=== PATIENT | male | born 1930 | race Asian ===

== ENCOUNTER 2016-12-10 03:36 | Outpatient (CLI) | payer MEDICARE, OTHER | END 2016-12-10 03:37 | disposition critical access hospital (66) | LOC: EMS 03:36 | PROVIDERS: ATTEND Surgery | DX: Z03.89 Encounter for observation for other suspected diseases and conditions ruled out (principal); W19.XXXA Unspecified fall, initial encounter; Y92.000 Kitchen of unspecified non-institutional (private) residence as the place of occurrence of the external cause | CPT/HCPCS: A0425; A0429 ==

== ENCOUNTER 2016-12-10 03:58 | Emergency (ER) | payer MEDICARE, OTHER ==
--- NOTE | 2016-12-10 04:13 | ED Physician Documentation ---
PD HPI Fall - Stated complaint Stated Complaint: GLF - Chief complaint Chief Complaint: General - History obtained from History obtained from: Patient, EMS - History of Present Illness Mechanism of injury: Unknown Fall distance: Standing position Where injury occurred: Home Timing - onset: How many hours ago (30) Contributing factors: Anticoagulated Similar symptoms before: Has not had sx before Recently seen: Not recently seen - Additional information Additional information: Patient is an 86 year old male with a history of a fib who was brought to the emergency department after falling. According to ems patient has dementia and wanders around most nights. His came to check on him and found him on the ground. she called ems. When ems arrived the patient denied any complaints. they lifted the patient to the chair, and then the patient was able to ambulate on his own. Upon initial evaluation in the emergency department patient showed no signs of trauma, and was in no distress. Review of Systems Unable to obtain: Dementia PD PAST MEDICAL HISTORY - Past Medical History Past Medical History: Yes Cardiovascular: Hypertension GI: GERD Musculoskeletal: Gout - Present Medications Home Medications: Ambulatory Orders Medication Instructions Recorded Confirmed Benzonatate 1 cap PO 12/10/16 Colchicine 12/10/16 Doxazosin [Cardura] 12/10/16 Finasteride [Proscar] 12/10/16 Omeprazole [PriLOSEC] 1 cap PO DAILY 12/10/16 12/10/16 Rivaroxaban [Xarelto] 10 mg PO DAILY 12/10/16 12/10/16 - Allergies Allergies/Adverse Reactions: Allergies Allergy/AdvReac Type Severity Reaction Status Date / Time No Known Drug Allergies Allergy Verified 12/10/16 04:04 - Social History Does the pt smoke?: No Smoking Status: Never smoker Does the pt drink ETOH?: No Does the pt have substance abuse?: No - POLST Patient has POLST: No PD ED PE NORMAL - Vitals Vital signs reviewed: Yes - General General: No acute distress, Well developed/nourished - HEENT HEENT: Atraumatic, PERRL, Pharynx benign - Neck Neck: No bony TTP - Cardiac Cardiac: No murmur, No rub - Respiratory Respiratory: No respiratory distress, Clear bilaterally - Abdomen Abdomen: Soft, Non tender, Non distended - Derm Derm: Normal color, Warm and dry, No rash, Other (no ecchymosis, no lacerations) - Extremities Extremities: No deformity, No tenderness to palpate, No edema - Neuro Neuro: No motor deficit, No sensory deficit, Normal speech Results - Vitals Vitals: Vital Signs - 24 hr 12/10/16 12/10/16 12/10/16 04:00 04:25 04:35 Temperature 36.8 C Heart Rate 64 145 H 57 L Respiratory 18 23 18 Rate Blood Pressure 152/81 H 129/69 131/64 H O2 Saturation 99 97 97 12/10/16 06:04 Temperature Heart Rate 61 Respiratory 20 Rate Blood Pressure 138/71 H O2 Saturation 97 Oxygen O2 Source Room air - EKG (time done) 0431 Rate: Rate (enter#) (58) Rhythm: Atrial fibrillation [place]: LAD, Anterior hemiblock Intervals: Normal HI Ischemia: Normal ST segments Compare to prior EKG: Unchanged from prior EKG - Rads (name of study) ct head Radiology: Final report received (no acute abnormality, left frontal parietal infarct, remote right occipital and right cerebellar infarcts. ) PD MEDICAL DECISION MAKING - ED course Complexity details: reviewed old records, reviewed results, re-evaluated patient , considered differential ED course: Patient was seen and examined at bedside. Patient was in no acute distress. Patient has a history of dementia but denied any complaints. due to the fact that he can't remember the fall or if there was any loc, ct head was ordered. ekg was in a fib but was rate controlled. CT head was within normal limits. Patient required no further work up and was stable for discharge with outpatient follow up. Departure - Departure Disposition: 01 Home, Self Care Clinical Impression: Fall Condition: Good Instructions: Falls Prevent Safe Cane Walker Follow-Up: Lucio Brday DO [Primary Care Provider] - Tomorrow Comments: Your diagnostics today were within normal limits. there were no acute abnormalities on your CT or ekg but you do have evidence of multiple strokes. It may be time to seek extra help in home care so that you can avoid falls and ER visits in the future. you should follow up with your pmd to discuss these options. You may return to the emergency department at any time for new, worsening or uncontrollable symptoms.
--- NOTE | 2016-12-10 05:27 | CT Preliminary Report ---
Exam: CT Head W/O IMPRESSION: 1. No evidence of hemorrhage or other acute abnormality. 2. Nonacute 2.3 cm left frontal parietal infarct. 3. Remote right occipital and right cerebellar infarcts. [facility] SITE ID: [id number]
--- NOTE | 2016-12-10 05:30 | CT Report ---
EXAM: CT HEAD EXAM DATE: 12/10/2016 05:11 AM. CLINICAL HISTORY: Fall, dementia, found down on Xarelto. COMPARISON: 12/07/2011. TECHNIQUE: Multiaxial CT images were obtained from the foramen magnum to the vertex. IV contrast: Non e. Reformats: Coronal. In accordance with CT protocol optimization, one or more of the following dose reduction techniques w ere utilized for this exam: automated exposure control, adjustment of mA and/or KV based on patient s ize, or use of iterative reconstructive technique. FINDINGS: Parenchyma: No intraparenchymal hemorrhage. No evidence of mass. There are remote right cerebellar an d right occipital infarcts. In the left peripheral frontoparietal region there is a 2.3 x 1.9 cm area of cortical low-density. Mccallum-white differentiation otherwise preserved. Ventricles: There is mild ventriculomegaly. No mass effect. Sinuses: Imaged paranasal sinuses, orbits, and mastoids show no significant abnormality. Bones: No evidence of fracture or calvarial defect. Other: None. IMPRESSION: 1. No evidence of hemorrhage or other acute abnormality. 2. Nonacute 2.3 cm left frontal parietal infarct. 3. Remote right occipital and right cerebellar infarcts. [facility] Referring Provider Line: [phone] SITE ID: [id number]
[2016-12-10 10:41] VITALS: BP 160/87
== END 2016-12-10 11:06 | disposition home or self-care (01) ==
LOC: EDUNIT# → ED 03:58 → SUPCPDRO 03:58 → ED 11:06
DX: Z71.1 Person with feared health complaint in whom no diagnosis is made (principal); W01.0XXA Fall on same level from slipping, tripping and stumbling without subsequent striking against object, initial encounter; Y92.019 Unspecified place in single-family (private) house as the place of occurrence of the external cause; I48.91 Unspecified atrial fibrillation; I44.4 Left anterior fascicular block; R94.31 Abnormal electrocardiogram [ECG] [EKG]; F03.90 Unspecified dementia, unspecified severity, without behavioral disturbance, psychotic disturbance, mood disturbance, and anxiety; I10 Essential (primary) hypertension; K21.9 Gastro-esophageal reflux disease without esophagitis; M10.9 Gout, unspecified
CPT/HCPCS: 70450; 93005; 93010; 99284

== ENCOUNTER 2017-08-07 08:00 | Outpatient (CLI) | payer MEDICARE, OTHER ==
[2017-08-07 18:45] LABS: BASOPHILS % (AUTO) 0.7 %; EOSINOPHILS # (AUTO) 0.1 10^3/uL (0.0-0.7); EOSINOPHILS % (AUTO) 2.7 %; HGB - HEMOGLOBIN 12.3 g/dL (14.0-18.0); LYMPHOCYTES # (AUTO) 1.1 10^3/uL (1.5-3.5); MEAN CORPUSCULAR HEMOGLOBIN 31.8 pg (27.0-31.0); MEAN CORPUSCULAR HGB CONC 32.3 g/dL (32.0-36.0); MEAN CORPUSCULAR VOLUME 98.4 fL (80.0-94.0); MEAN PLATELET VOLUME 10.3 fL (7.4-11.4); MONOCYTES # (AUTO) 0.5 10^3/uL (0.0-1.0); MONOCYTES % (AUTO) 9.5 %; NEUTROPHILS # (AUTO) 3.8 10^3/uL (1.5-6.6); NEUTROPHILS % (AUTO) 67.1 %; PLT - PLATELET COUNT 178 10^3/uL (130-450); RED BLOOD COUNT 3.86 10^6/uL (4.70-6.10); RED CELL DISTRIBUTION WIDTH 14.9 % (12.0-15.0); WHITE BLOOD COUNT 5.6 x10^3/uL (4.8-10.8)
[2017-08-07 19:04] LABS: CALCIUM 9.8 mg/dL (8.5-10.3); CREATININE 1.3 mg/dL (0.6-1.2)
== END 2017-08-07 08:01 | disposition home or self-care (01) ==
LOC: LAB.WCP 08:00
PROVIDERS: ATTEND Family Medicine
DX: I48.91 Unspecified atrial fibrillation (principal)
CPT/HCPCS: 36415; 80048; 85025

== ENCOUNTER 2017-09-29 20:39 | Outpatient (CLI) | payer MEDICARE, OTHER | END 2017-09-29 20:40 | disposition critical access hospital (66) | LOC: EMS 20:39 | PROVIDERS: ATTEND Surgery | DX: R07.9 Chest pain, unspecified (principal) | CPT/HCPCS: A0425; A0427 ==

== ENCOUNTER 2017-09-29 21:03 | Emergency (ER) | payer MEDICARE, OTHER ==
--- NOTE | 2017-09-29 21:10 | ED Physician Documentation ---
PD HPI CHEST PAIN - Stated complaint Stated Complaint: CP - Chief complaint Chief Complaint: Cardiac - History obtained from History obtained from: Patient, Family, EMS - History of Present Illness Timing - onset: How many hours ago (1) Timing - onset during: Rest (while watching TV at home) Timing - details: Abrupt onset Pain level max: 6 Pain level now: 0 Quality: Pressure Location: Substernal Radiation: Other (no radiation) Improved by: Nitro, ASA, Other (resolved after EMS administered ASA 81 mg x 4, SLNTG x 1) Worsened by: Other (no apparent exacerbating factors) Associated symptoms: No: Shortness of air, Diaphoresis, Nausea, Vomiting, Feeling faint / dizzy, General Weakness, Palpitations Similar symptoms before: Has not had sx before Recently seen: Not recently seen - Additional information Additional information: c/o midline chest pain onset 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 He says he has not had this before. He reports the entire episode lasted 10 -20 minutes. medics report that it did not resolve until after 1 SLNTG was given. Asymptomatic in ED Review of Systems Constitutional: denies: Fever, Chills, Sweats Eyes: reports: Reviewed and negative Ears: reports: Reviewed and negative Nose: reports: Reviewed and negative Throat: reports: Reviewed and negative Cardiac: reports: Chest pain / pressure. denies: Palpitations, Pedal edema Respiratory: reports: Reviewed and negative GI: reports: Reviewed and negative : denies: Dysuria, Frequency Skin: reports: Reviewed and negative Musculoskeletal: reports: Reviewed and negative Neurologic: reports: Reviewed and negative PD PAST MEDICAL HISTORY - Past Medical History Cardiovascular: Hypertension GI: GERD Musculoskeletal: Gout - Present Medications Home Medications: Ambulatory Orders Medication Instructions Recorded Confirmed Benzonatate 1 cap PO 12/10/16 Colchicine 12/10/16 Doxazosin [Cardura] 12/10/16 Omeprazole [PriLOSEC] 1 cap PO DAILY 12/10/16 12/10/16 Rivaroxaban [Xarelto] 10 mg PO DAILY 12/10/16 12/10/16 Pravastatin Sodium [Pravastatin 09/29/17 Sodium] - Allergies Allergies/Adverse Reactions: Allergies Allergy/AdvReac Type Severity Reaction Status Date / Time No Known Drug Allergies Allergy Verified 09/29/17 21:07 - Social History Does the pt smoke?: No Smoking Status: Never smoker Does the pt drink ETOH?: No Does the pt have substance abuse?: No - POLST Patient has POLST: No PD ED PE NORMAL - Vitals Vital signs reviewed: Yes - General General: No acute distress, Well developed/nourished, Other (awake, alert, oriented x 2 (initially he says the year is 1979. I then prompted him with "two thousand" and he immediately replied "eighteen". He does not know month and cannot offer a guess, either. He is oriented to place, person, and can quickly answer who is President)) - HEENT HEENT: PERRL, EOMI, Moist mucous membranes - Neck Neck: Supple, no meningeal sign - Respiratory Respiratory: No respiratory distress - Abdomen Abdomen: Soft, Non tender, Non distended - Back Back: No CVA TTP - Derm Derm: Normal color, Warm and dry - Extremities Extremities: No edema - Neuro Neuro: lump inspector 2-12 intact, No motor deficit, No sensory deficit, Normal speech PD ED PE EXPANDED - Cardiac Cardiac: Irregularly irregular Results - Vitals Vitals: Vital Signs - 24 hr 09/29/17 09/29/17 09/29/17 21:03 21:39 22:52 Temperature 36.5 C Heart Rate 77 63 69 Respiratory 20 18 18 Rate Blood Pressure 116/69 132/69 H 152/85 H O2 Saturation 99 99 100 09/29/17 23:11 Temperature Heart Rate 70 Respiratory 18 Rate Blood Pressure 153/69 H O2 Saturation 100 Oxygen O2 Source Room air - EKG (time done) No standard instances Rate: Rate (enter#) (68) Rhythm: Atrial fibrillation [place]: LAD Ischemia: Normal ST segments, Q waves (II, III, aVF, V1-V3 ) Compare to prior EKG: Unchanged from prior EKG (Q waves also in same leads EKG) - Labs Labs: Laboratory Tests 09/29/17 09/29/17 09/29/17 21:31 21:31 21:31 WBC 4.8 RBC 3.59 L Hgb 11.2 L Hct 34.9 L MCV 97.2 H MCH 31.2 H MCHC 32.1 RDW 16.0 H Plt Count 187 MPV 9.2 Neut # 3.3 Lymph # 0.7 L Wheeler # 0.6 Eos # 0.2 Baso # 0.0 Absolute Nucleated RBC 0.00 Nucleated RBC % 0.0 Sodium 141 Potassium 4.4 Chloride 110 Carbon Dioxide 24 Anion Gap 7.0 BUN 31 H Creatinine 1.1 Estimated GFR (MDRD) 63 L Glucose 120 H Calcium 9.8 Total Bilirubin 0.6 AST 28 ALT 18 Alkaline Phosphatase 76 Troponin I 0.53 H* Total Protein 7.4 Albumin 4.0 Globulin 3.4 Albumin/Globulin Ratio 1.2 Lipase 68 H PD MEDICAL DECISION MAKING - ED course Complexity details: reviewed results, re-evaluated patient, considered differential, d/w patient, d/w family ED course: Remained asymptomatic in ED but TNI results (+). D/W Dr. Preciado (cardiology at [facility]), recommends transfer to [facility] to hospitalist. I then d/w Dr. Jackson, accepts transfer. Departure - Departure Disposition: 02 Transfer Acute Care Hosp Clinical Impression: NSTEMI (non-ST elevated myocardial infarction) Condition: Stable Discharge Date/Time: 09/29/17 23:26
[2017-09-29 21:37] LABS: BASOPHILS % (AUTO) 0.8 %; EOSINOPHILS # (AUTO) 0.2 10^3/uL (0.0-0.7); EOSINOPHILS % (AUTO) 3.7 %; HGB - HEMOGLOBIN 11.2 g/dL (14.0-18.0); LYMPHOCYTES # (AUTO) 0.7 10^3/uL (1.5-3.5); LYMPHOCYTES % (AUTO) 14.6 %; MEAN CORPUSCULAR HEMOGLOBIN 31.2 pg (27.0-31.0); MEAN CORPUSCULAR HGB CONC 32.1 g/dL (32.0-36.0); MEAN CORPUSCULAR VOLUME 97.2 fL (80.0-94.0); MEAN PLATELET VOLUME 9.2 fL (7.4-11.4); MONOCYTES # (AUTO) 0.6 10^3/uL (0.0-1.0); MONOCYTES % (AUTO) 12.3 %; NEUTROPHILS # (AUTO) 3.3 10^3/uL (1.5-6.6); NEUTROPHILS % (AUTO) 68.6 %; PLT - PLATELET COUNT 187 10^3/uL (130-450); RED BLOOD COUNT 3.59 10^6/uL (4.70-6.10); WHITE BLOOD COUNT 4.8 x10^3/uL (4.8-10.8)
[2017-09-29 21:51] LABS: ALBUMIN/GLOBULIN RATIO 1.2 (1.0-2.2); BILIRUBIN,TOTAL 0.6 mg/dL (0.2-1.0); CALCIUM 9.8 mg/dL (8.5-10.3); CREATININE 1.1 mg/dL (0.6-1.2); TOTAL PROTEIN 7.4 g/dL (6.7-8.2)
--- NOTE | 2017-09-29 21:59 | XRAY Report ---
EXAM: CHEST RADIOGRAPHY EXAM DATE: 09/29/2017 09:15 PM. CLINICAL HISTORY: Chest pain. COMPARISON: 06/08/2016. TECHNIQUE: 2 views. FINDINGS: Lungs/Pleura: No focal opacities evident. No pleural effusion. No pneumothorax. Normal volumes. Mediastinum: Large heart. Other: No compression fractures. IMPRESSION: Cardiomegaly. [facility] Referring Provider Line: [phone] SITE ID: [id number]
[2017-09-29 23:13] VITALS: BP 153/69
== END 2017-09-29 23:26 | disposition short-term general hospital (02) ==
LOC: EDUNIT# → ED 21:03
DX: I21.4 Non-ST elevation (NSTEMI) myocardial infarction (principal); I48.91 Unspecified atrial fibrillation; I10 Essential (primary) hypertension
CPT/HCPCS: 36415; 71046; 80053; 83690; 84484; 85025; 93005; 99284; 99285

== ENCOUNTER 2017-09-29 23:19 | Outpatient (CLI) | payer MEDICARE, OTHER | END 2017-09-29 23:20 | disposition short-term general hospital (02) | LOC: EMS 23:19 | PROVIDERS: ATTEND Surgery | DX: R07.9 Chest pain, unspecified (principal) | CPT/HCPCS: A0425; A0426 ==

== ENCOUNTER 2017-12-29 20:45 | Outpatient (CLI) | payer MEDICARE, OTHER | END 2017-12-29 23:59 | disposition critical access hospital (66) | LOC: EMS 20:45 | PROVIDERS: ATTEND Surgery | DX: R53.1 Weakness (principal); R47.81 Slurred speech; R41.82 Altered mental status, unspecified; W18.30XA Fall on same level, unspecified, initial encounter; Y92.009 Unspecified place in unspecified non-institutional (private) residence as the place of occurrence of the external cause | CPT/HCPCS: A0425; A0427 ==

== ENCOUNTER 2017-12-29 21:02 | Emergency (ER) | payer MEDICARE, OTHER ==
--- NOTE | 2017-12-29 21:09 | ED Physician Documentation ---
PD HPI FOCAL NEURO - Stated complaint Stated Complaint: FALL - History obtained from History obtained from: Patient - History of Present Illness Timing - onset: Enter time (20:20), Today Timing - details: Abrupt onset, Still present in ED Severity of deficit: Severe Baseline status: positive: Mildly confused Similar symptoms before: Has not had sx before Recently seen: Emergency Dept - Additional information Additional information: BIBA; per medic report, family saw patient at baseline ("normal") at approximately 20:15 tonight. Approximately 5 minutes later, family found him on floor in kitchen, weak and AMS. This was approximately 20:20 tonight, and he has shown no change en route to ED. Review of Systems Unable to obtain: AMS (nonverbal) PD PAST MEDICAL HISTORY - Past Medical History Cardiovascular: Hypertension GI: GERD Musculoskeletal: Gout - Present Medications Home Medications: Ambulatory Orders Medication Instructions Recorded Confirmed Benzonatate 1 cap PO 12/10/16 Colchicine 12/10/16 Doxazosin [Cardura] 12/10/16 Omeprazole [PriLOSEC] 1 cap PO DAILY 12/10/16 12/10/16 Rivaroxaban [Xarelto] 10 mg PO DAILY 12/10/16 12/10/16 Pravastatin Sodium [Pravastatin 09/29/17 Sodium] - Allergies Allergies/Adverse Reactions: Allergies Allergy/AdvReac Type Severity Reaction Status Date / Time No Known Drug Allergies Allergy Verified 09/29/17 21:07 - Social History Does the pt smoke?: No Smoking Status: Never smoker Does the pt drink ETOH?: No Does the pt have substance abuse?: No - POLST Patient has POLST: No PD ED PE NORMAL - Vitals Vital signs reviewed: Yes - General General: No acute distress, Well developed/nourished - HEENT HEENT: Moist mucous membranes - Neck Neck: Supple, no meningeal sign - Cardiac Cardiac: RRR, No murmur - Respiratory Respiratory: No respiratory distress, Clear bilaterally - Abdomen Abdomen: Soft, Non tender - Neuro Eye Opening: To Voice Motor: Localizes to Pain Verbal: Incomprehensible GCS Score: 10 PD ED PE EXPANDED - General General: Other (does not respond verbally except occasionally with incomprehensible attempts) - HEENT HEENT: Other (cannot test EOMI, but appears to have right gaze preference) - Cardiac Cardiac: Irregularly irregular NIHSS - Level of Consciousness Level of consciousness: (2) Not alert, requires repeated stimulation to attend LOC Questions: (2) Answers neither correct LOC Commands: (2)Performs none - Gaze Best Gaze: (2) Forced deviation - Visual Visual: (0) No loss - Facial Palsy Facial Palsy: (0) Normal, symmetrical movement - Motor Arms (both separate) Motor Arm (right): (0) No drift Motor Arm (left): (2) Some effort against gravity - Motor Legs (both separate) Motor Leg (right): (0) No drift Motor Leg (left): (2) Some effort against gravity - Limb Ataxia Limb Ataxia: (1) Present in 1 limb - Sensory Sensory: (0) Normal - Best Language Best Language: (2) Severe aphasia - Dysarthria Dysarthria: (2) Severe dysarthria - Extinction and Inattention (formally neg Extinction and inattention: (2) Profound layo-inattention or extinction to more than one modality - Total Score/Results Total Score/Result: 19 Results - Vitals Vitals: Vital Signs - 24 hr 12/29/17 12/29/17 12/29/17 21:08 21:20 21:25 Temperature 36.6 C Heart Rate 101 H 93 Respiratory 20 18 19 Rate Blood Pressure 153/87 H 166/140 H 164/123 H O2 Saturation 100 99 98 12/29/17 12/29/17 12/29/17 21:30 21:35 21:45 Temperature Heart Rate 105 H 85 81 Respiratory 18 20 18 Rate Blood Pressure 170/105 H 158/79 H 156/95 H O2 Saturation 99 98 98 12/29/17 12/29/17 12/29/17 22:21 22:42 22:55 Temperature Heart Rate 82 85 83 Respiratory 18 18 18 Rate Blood Pressure 135/85 H 162/73 H 165/98 H O2 Saturation 96 97 98 12/29/17 12/29/17 12/29/17 23:04 23:25 23:35 Temperature Heart Rate 94 94 84 Respiratory 17 15 13 Rate Blood Pressure 158/91 H 117/94 H 144/105 H O2 Saturation 99 98 97 12/29/17 12/30/17 12/30/17 23:53 00:01 00:49 Temperature Heart Rate 95 94 117 H Respiratory 17 18 20 Rate Blood Pressure 163/97 H 162/90 H 159/96 H O2 Saturation 98 97 98 Oxygen O2 Source Room air - EKG (time done) No standard instances Rate: Rate (enter#) (97) Rhythm: Atrial fibrillation [place]: LAD QRS: Normal Ischemia: Q waves (inferior leads, V2, V3) - Labs Labs: Laboratory Tests 12/29/17 12/29/17 12/29/17 21:11 21:11 21:11 WBC 3.5 L RBC 2.42 L Hgb 7.8 L Hct 23.7 L MCV 98.0 H MCH 32.0 H MCHC 32.7 RDW 17.0 H Plt Count 115 L MPV 8.7 Neut # (Auto) 2.1 Lymph # (Auto) 0.9 L [place] # (Auto) 0.4 Eos # (Auto) 0.1 Baso # (Auto) 0.0 Absolute Nucleated RBC 0.00 Nucleated RBC % 0.0 PT 15.4 H INR 1.4 H APTT 31.4 Sodium 143 Potassium 2.6 L Chloride 124 H* Carbon Dioxide 16 L Anion Gap 3.0 L BUN 19 Creatinine 0.9 Estimated GFR (MDRD) 79 L Glucose 74 Calcium 5.4 L* Phosphorus Magnesium Total Bilirubin 0.4 AST 14 ALT < 10 L Alkaline Phosphatase 36 L Troponin I Total Protein 4.2 L Albumin 1.9 L Globulin 2.3 Albumin/Globulin Ratio 0.8 L Lipase 12/29/17 12/29/17 12/29/17 21:11 21:11 23:53 WBC 6.2 RBC 3.80 L Hgb 12.0 L Hct 36.7 L MCV 96.5 H MCH 31.6 H MCHC 32.7 RDW 17.2 H Plt Count 159 MPV 9.3 Neut # (Auto) 5.0 Lymph # (Auto) 0.8 L [place] # (Auto) 0.3 Eos # (Auto) 0.1 Baso # (Auto) 0.0 Absolute Nucleated RBC 0.00 Nucleated RBC % 0.0 PT INR APTT Sodium Potassium Chloride Carbon Dioxide Anion Gap BUN Creatinine Estimated GFR (MDRD) Glucose Calcium Phosphorus 1.6 L Magnesium 1.1 L Total Bilirubin AST ALT Alkaline Phosphatase Troponin I < 0.04 Total Protein Albumin Globulin Albumin/Globulin Ratio Lipase 12/29/17 12/29/17 23:53 23:53 WBC RBC Hgb Hct MCV MCH MCHC RDW Plt Count MPV Neut # (Auto) Lymph # (Auto) [place] # (Auto) Eos # (Auto) Baso # (Auto) Absolute Nucleated RBC Nucleated RBC % PT 11.5 INR 1.0 APTT 24.6 L Sodium 140 Potassium 4.2 Chloride 110 Carbon Dioxide 23 Anion Gap 7.0 BUN 28 H Creatinine 1.5 H Estimated GFR (MDRD) 44 L Glucose 116 H Calcium 9.5 Phosphorus 3.5 Magnesium 2.1 Total Bilirubin 0.4 AST 27 ALT 12 Alkaline Phosphatase 62 Troponin I Total Protein 7.7 Albumin 3.5 Globulin 4.2 Albumin/Globulin Ratio 0.8 L Lipase 112 H - Rads (name of study) chest xray Radiology: Prelim report reviewed, See rad report CTh Radiology: Prelim report reviewed, See rad report CTH angio Radiology: Prelim report reviewed, See rad report CT neck angio Radiology: Prelim report reviewed, See rad report PD MEDICAL DECISION MAKING - ED course Complexity details: considered differential, d/w patient ED course: D/W Dr. Collins (on-call neurology at [facility]). She says patient is not a tPA candidate if he has taken Xarelto past 48 hours. Family then arrived to ED and they are confident patient has not taken his Xarelto for at least 3 days. Telestroke consult undertaken with Dr. Collins and family in room. Decision was made to give tPA. Dr. Collins recommends repeating blood tests due to the number of striking abnormalities on initial tests. Repeat blood work indeed shows resolution of nearly all of the significant abnormal test results, and now reveals mild renal insufficiency (elevated bun/cr). Dr. Collins recommends send patient to [facility] for further treatment and evaluation. - Critical Care Time(min): 60 Time Includes: Direct patient care, Review records, Reassess patient, Document care, Coordinate care, Family consult for tx dec, See progress note Data interpretation: Labs, Pulse ox, CXR, See progress note Procedures included in critical care time: See progress note Procedures excluded from critical care time: See progress note - Sepsis Event Vital Signs: Vital Signs - 24 hr 12/29/17 12/29/17 12/29/17 21:08 21:20 21:25 Temperature 36.6 C Heart Rate 101 H 93 Respiratory 20 18 19 Rate Blood Pressure 153/87 H 166/140 H 164/123 H O2 Saturation 100 99 98 12/29/17 12/29/1712/29/18 21:30 21:35 21:45 Temperature Heart Rate 105 H 85 81 Respiratory 18 20 18 Rate Blood Pressure 170/105 H 158/79 H 156/95 H O2 Saturation 99 98 98 12/29/17 12/29/17 12/29/17 22:21 22:42 22:55 Temperature Heart Rate 82 85 83 Respiratory 18 18 18 Rate Blood Pressure 135/85 H 162/73 H 165/98 H O2 Saturation 96 97 98 12/29/17 12/29/17 12/29/17 23:04 23:25 23:35 Temperature Heart Rate 94 94 84 Respiratory 17 15 13 Rate Blood Pressure 158/91 H 117/94 H 144/105 H O2 Saturation 99 98 97 12/29/17 12/30/17 12/30/17 23:53 00:01 00:49 Temperature Heart Rate 95 94 117 H Respiratory 17 18 20 Rate Blood Pressure 163/97 H 162/90 H 159/96 H O2 Saturation 98 97 98 Oxygen O2 Source Room air - TPA CVA checklist Inclusion crititeria: positive: Sig neuro deficit, CT no bleed, Onset know < 4.5 hr Absolute contraindications: negative: SBP>185 DBP>110 s/p tx, CT shows bleed, CT shows major est CVA, Platelets <100K, PTT > 40, INR >1.7, Known bleeding disorder, Surgery/trauma < 15 days, Seizure at onset, Internal bleed < 22 days, Brain/spine surg < 3 m, Head trauma < 3 m, CVA < 3 months, Any hx ICH, Any hx brain aneurysm, Any hx brain AVM, Any hx brain tumor, Suspect SAH Relative contraindications: positive: Advanced age. negative: Too severe (NIHSS >22), Too mild, Rapid improvement, Glusose <50 >400, Life expectancy < 1 yr, Severe comorbid illness, Bacterial endocarditis, Severe hepatic dz, Severe renal dz, Hemorrhagic eye condition, Septic thrombophlebitis, Infected AV shunt , On coumadin, Left heart thrombus Absolute contraindications if 3-4.5 hr: positive: Age > 80. negative: Coumadin (any INR), Combo prior CVA & DM Departure - Departure Disposition: 02 Transfer Acute Care Hosp Clinical Impression: Cerebrovascular accident (CVA) Qualifiers: CVA mechanism: unspecified Qualified Code(s): I63.9 - Cerebral infarction, unspecified Condition: Critical Discharge Date/Time: 12/30/17 01:10
[2017-12-29 21:18] LABS: BASOPHILS % (AUTO) 1.3 %; EOSINOPHILS # (AUTO) 0.1 10^3/uL (0.0-0.7); EOSINOPHILS % (AUTO) 3.1 %; HGB - HEMOGLOBIN 7.8 g/dL (14.0-18.0); LYMPHOCYTES # (AUTO) 0.9 10^3/uL (1.5-3.5); LYMPHOCYTES % (AUTO) 24.9 %; MEAN CORPUSCULAR HGB CONC 32.7 g/dL (32.0-36.0); MEAN PLATELET VOLUME 8.7 fL (7.4-11.4); MONOCYTES # (AUTO) 0.4 10^3/uL (0.0-1.0); MONOCYTES % (AUTO) 10.5 %; NEUTROPHILS # (AUTO) 2.1 10^3/uL (1.5-6.6); NEUTROPHILS % (AUTO) 60.2 %; PLT - PLATELET COUNT 115 10^3/uL (130-450); RED BLOOD COUNT 2.42 10^6/uL (4.70-6.10); WHITE BLOOD COUNT 3.5 x10^3/uL (4.8-10.8)
[2017-12-29 21:25] LABS: INR 1.4 (0.8-1.2); PT - PROTHROMBIN TIME 15.4 secs (9.9-12.6)
[2017-12-29 21:33] LABS: SODIUM 143 mmol/L (135-145)
[2017-12-29 21:35] LABS: ALBUMIN 1.9 g/dL (3.2-5.5); ALBUMIN/GLOBULIN RATIO 0.8 (1.0-2.2); ALKALINE PHOSPHATASE 36 IU/L (42-121); ALT ALANINE AMINOTRANSFERASE < 10 IU/L (10-60); AST ASPARTATE AMINOTRANSFERASE 14 IU/L (10-42); BILIRUBIN,TOTAL 0.4 mg/dL (0.2-1.0); BUN - BLOOD UREA NITROGEN 19 mg/dL (6-20); CARBON DIOXIDE - CO2 16 mmol/L (21-32); CREATININE 0.9 mg/dL (0.6-1.2); GFR - MDRD 79 (>89); GLUCOSE 74 mg/dL (70-100); TOTAL PROTEIN 4.2 g/dL (6.7-8.2)
[2017-12-29 21:36] LABS: CHLORIDE 124 mmol/L (101-111)
[2017-12-29 21:37] LABS: CALCIUM 5.4 mg/dL (8.5-10.3)
--- NOTE | 2017-12-29 21:39 | CT Report ---
Procedure Date: 12/29/2017 Accession Number: [id number] / [id number] Procedure: CT - Head W/O CPT Code: FULL RESULT: EXAM: CT HEAD EXAM DATE: 12/29/2017 09:27 PM. CLINICAL HISTORY: Left-sided weakness and stroke. COMPARISON: 12/10/2016. TECHNIQUE: Multiaxial CT images were obtained from the foramen magnum to the vertex. Reformats: Coronal. IV contrast: None. In accordance with CT protocol optimization, one or more of the following dose reduction techniques were utilized for this exam: automated exposure control, adjustment of mA and/or KV based on patient size, or use of iterative reconstructive technique. FINDINGS: Parenchyma: There is new encephalomalacia of moderate size in the left frontal lobe consistent with old infarct. There is encephalomalacia in the right occipital lobe and inferior left cerebellar hemisphere. There is encephalomalacia in the left parietal lobe which is unchanged. Negative for acute intracranial hemorrhage. There is no midline shift. No asymmetric dense intracranial arteries. Extraaxial Spaces: No subdural or epidural collections identified. Ventricles: Normal in size and position. Sinuses and Orbits: There is mild ethmoid sinus mucosal thickening. Other sinuses appear clear. Bones: No evidence of fracture or calvarial defect. Other: None. IMPRESSION: 1. 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 2. No acute hemorrhage. No localizing edema or mass effect. [facility] The call report notification system was initiated by Dr. Bossman Grady at 21:34 hrs on 12/29/17. The above findings were discussed with Cody Vazquez by Dr. Bossman Grady at 21:37 hrs on 12/29/17.
[2017-12-29 22:08] LABS: MAGNESIUM 1.1 mg/dL (1.7-2.8); PHOSPHORUS 1.6 mg/dL (2.5-4.6)
--- NOTE | 2017-12-29 22:23 | XRAY Report ---
Procedure Date: 12/29/2017 Accession Number: [id number] / [id number] Procedure: XR - Chest 2 View X-Ray CPT Code: 20241 FULL RESULT: EXAM: CHEST RADIOGRAPHY EXAM DATE: 12/29/2017 09:49 PM. CLINICAL HISTORY: CVA. Left-sided weakness. COMPARISON: CHEST 2 VIEW 09/29/2017. TECHNIQUE: 2 views. FINDINGS: Lungs/Pleura: Elevated right hemidiaphragm. Mild right basilar atelectasis or infiltrate. No pleural effusion seen. No pneumothorax. Mediastinum: Mild cardiomegaly. Other: None. IMPRESSION: 1. Cardiomegaly with elevated right hemidiaphragm and mild right basilar atelectasis or infiltrate. [facility]
[2017-12-29] MEDS ORDERED: CALCIUM GLUCONATE 1,000 MG in SODIUM CHLORIDE 0.9% 50 ML IV STA (22:35)
[2017-12-29] MEDS ORDERED: POTASSIUM CHLOR 20 MEQ/100 ML 20 MEQ/100 ML BAG IV STA (22:38)
[2017-12-29] MEDS ORDERED: IOPAMIDOL-300 100 ML VIAL ONE (22:49)
[2017-12-29] MEDS ORDERED: ALTEPLASE 100 MG VIAL ONE (23:00)
[2017-12-29] MEDS ORDERED: ALTEPLASE IV STA (23:11)
[2017-12-29] MEDS ORDERED: WATER FOR INJECTION STERILE IV STA (23:11)
[2017-12-29 23:59] LABS: BASOPHILS % (AUTO) 0.7 %; EOSINOPHILS # (AUTO) 0.1 10^3/uL (0.0-0.7); EOSINOPHILS % (AUTO) 1.3 %; LYMPHOCYTES # (AUTO) 0.8 10^3/uL (1.5-3.5); LYMPHOCYTES % (AUTO) 12.1 %; MEAN CORPUSCULAR HEMOGLOBIN 31.6 pg (27.0-31.0); MEAN CORPUSCULAR HGB CONC 32.7 g/dL (32.0-36.0); MEAN CORPUSCULAR VOLUME 96.5 fL (80.0-94.0); MEAN PLATELET VOLUME 9.3 fL (7.4-11.4); MONOCYTES # (AUTO) 0.3 10^3/uL (0.0-1.0); MONOCYTES % (AUTO) 5.4 %; NEUTROPHILS % (AUTO) 80.5 %; PLT - PLATELET COUNT 159 10^3/uL (130-450); RED CELL DISTRIBUTION WIDTH 17.2 % (12.0-15.0); WHITE BLOOD COUNT 6.2 x10^3/uL (4.8-10.8)
[2017-12-30 00:05] LABS: PT - PROTHROMBIN TIME 11.5 secs (9.9-12.6)
[2017-12-30 00:24] LABS: ALBUMIN 3.5 g/dL (3.2-5.5); ALBUMIN/GLOBULIN RATIO 0.8 (1.0-2.2); BILIRUBIN,TOTAL 0.4 mg/dL (0.2-1.0); CALCIUM 9.5 mg/dL (8.5-10.3); CREATININE 1.5 mg/dL (0.6-1.2); MAGNESIUM 2.1 mg/dL (1.7-2.8); PHOSPHORUS 3.5 mg/dL (2.5-4.6); TOTAL PROTEIN 7.7 g/dL (6.7-8.2)
[2017-12-30] MEDS ORDERED: IOPAMIDOL-300 100 ML VIAL IVP ONE (00:28)
[2017-12-30 00:51] VITALS: BP 159/96
--- NOTE | 2017-12-30 01:13 | CT Report ---
Procedure Date: 12/30/2017 Accession Number: [id number] / [id number] Procedure: CT - Head Angio CPT Code: FULL RESULT: EXAM: CT ANGIOGRAM HEAD CT SCAN OF THE HEAD WITH CONTRAST EXAM DATE: 12/30/2017 12:46 AM CLINICAL HISTORY: AMS. COMPARISON: CT head 12/29/2017. TECHNIQUE: - CT Scan Head: Using a multidetector scanner, axial images were acquired from the foramen magnum to the skull vertex following contrast administration. - CT Angiogram: Using a multidetector scanner, high-resolution axial images were acquired from the skull base through vertex following rapid infusion of intravenous contrast. Reformats: Multiplanar MIP reformats were reconstructed. Nascet criteria used for stenosis measurement. IV Contrast: 80 mL Isovue 300. In accordance with CT protocol optimization, one or more of the following dose reduction techniques were utilized for this exam: automated exposure control, adjustment of mA and/or KV based on patient size, or use of iterative reconstructive technique. FINDINGS: There is suggestion of new subtle decreased good-white matter differentiation in the right frontal operculum compared to the brain CT from yesterday. No abnormal brain parenchymal enhancement is appreciated. There is normal contrast opacification of the dural venous sinuses. The internal carotid arteries are patent from the superior cervical to the supraclinoid portions. Calcified plaque is present in the bilateral carotid siphons resulting in stenosis measuring approximately 50% bilaterally. The bilateral A1 and A2 segments are patent. The left M1 and M2 segments are patent. The right M1 segment is patent. However, the anterior division of the M2 segment is not seen (image 128, series 4), suspicious for acute occlusion from thromboembolism. In the posterior circulation, the bilateral V4 segments are patent. The PICAs and AICAs are patent. The basilar artery is diminutive in caliber but patent throughout its course to the terminus. There is normal contrast opacification in the bilateral superior cerebellar and posterior cerebral arteries. A small left posterior communicating artery is present. A right posterior communicating artery is not seen. IMPRESSION: 1. 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 2. No abnormal brain parenchymal enhancement. 3. Patent dural venous sinuses. 4. Patent remaining major intracranial arteries. [facility] The above findings were discussed with Dr. Vazquez by Dr. Mona Knott at 01:11 hrs on 12/30/17.
--- NOTE | 2017-12-30 01:18 | CT Report ---
Procedure Date: 12/30/2017 Accession Number: [id number] / [id number] Procedure: CT - Neck Angio CPT Code: FULL RESULT: EXAM: CT ANGIOGRAM NECK EXAM DATE: 12/30/2017 12:46 AM. CLINICAL HISTORY: AMS. COMPARISON: None. TECHNIQUE: Routine axial helical imaging was performed from the skull base through the aortic arch. Reconstructions: Routine multiplanar 3D MIP reconstructions. IV Contrast: 80 mL Isovue 300. Evaluation of arterial stenosis is based on a NASCET method of measurement. In accordance with CT protocol optimization, one or more of the following dose reduction techniques were utilized for this exam: automated exposure control, adjustment of mA and/or KV based on patient size, or use of iterative reconstructive technique. FINDINGS: Right Carotid: The common, internal, and external carotid arteries are patent. Minimal calcified plaque is noted at the carotid bifurcation without hemodynamically significant stenosis. Left Carotid: The common, internal, and external carotid arteries are patent. Mild calcified plaque is present at the carotid bifurcation without hemodynamically significant stenosis. Vertebrals: The left vertebral artery origin arises directly from the aortic arch, a normal variant. The bilateral vertebral artery origins are patent. The right vertebral artery is slightly dominant. No hemodynamically significant stenosis is seen in the remaining cervical courses. Other: Minimal emphysematous changes are noted in the right lung apex. Subsegmental atelectasis is present in the bilateral upper lungs. The airway is patent. Moderate degenerative changes are present throughout the cervical spine. No acute abnormality is seen in the soft tissues of the neck. IMPRESSION: No hemodynamically significant stenosis in the extracranial arteries. [facility]
[2017-12-30] MEDS ORDERED: ALTEPLASE 100 MG VIAL IVP ONE (09:00)
== END 2017-12-30 01:10 | disposition short-term general hospital (02) ==
LOC: EDBD → EDUNIT# → SUPCPDRO 21:02 → ED 21:02
DX: I63.9 Cerebral infarction, unspecified (principal); I69.320 Aphasia following cerebral infarction; I69.322 Dysarthria following cerebral infarction; R29.719 NIHSS score 19; R40.2422 Glasgow coma scale score 9-12, at arrival to emergency department; I10 Essential (primary) hypertension; N28.9 Disorder of kidney and ureter, unspecified; I48.91 Unspecified atrial fibrillation; Z79.01 Long term (current) use of anticoagulants
CPT/HCPCS: 36415; 70450; 70496; 70498; 71046; 80053; 83690; 83735; 84100; 84484; 85025; 85610; 85730; 93005; 99285; 99291; J2997; Q9967

== ENCOUNTER 2017-12-30 01:03 | Outpatient (CLI) | payer MEDICARE, OTHER | END 2017-12-30 01:04 | disposition short-term general hospital (02) | LOC: EMS 01:03 | PROVIDERS: ATTEND Surgery | DX: I63.9 Cerebral infarction, unspecified (principal) | CPT/HCPCS: A0425; A0426 ==